=== PATIENT | female | born 1990 | race African-American/Black ===

== ENCOUNTER 2023-03-17 14:03 | Outpatient (AMB) | payer OTHER, SELFPAY ==
--- NOTE | 2023-03-17 14:08 | A.OFFVIS_ITS ---
Intake Vital Signs 03/17/23 14:10 Height 5 ft 6 in Weight 242 lb 8.136 oz BMI 39.1 BP 125/59 L Blood Pressure Location Lt brachial Position Sitting Pulse 69 Intake Visit Reasons: blood in stool, blood in emesis Intake Note: Makayla presents in the office as a new patient for blood in her stool. CC: She was having blood in her stools - she gets bad stomach pains. Everything she eats she has to have a BM afterwards. Loose stools right after anything that she eats. Pains are on the left side of her abdomen. [employer] Required: No Allergies Seasonal Allergies Allergy (Mild, Verified 03/17/23 14:11) Unknown HPI HPI Comments History of Present Illness Details 32 y.o F with no signficant PMH who is h ere for an episode of blood in stool. Pt reports having an episode of abd pain, N,V with soft frequent stools with blood in it. Lasted 3-4 days. Does not report any preceding hx of eating outside. No sick contacts. No prior similar hx however does have frequent soft stools with abd cramping at baseline x past few years. Abd cramping not related to defecation, food intake or menstrual cycle. No intentional weight loss. Pat aunt: stomach ca Mother: crohns disease PFSH Family History (Updated 03/17/23 @ 14:12 by VALERIA Deng) Paternal Aunt Stomach cancer Other Colon cancer Social History (Updated 03/17/23 @ 14:12 by VALERIA eDng) Household Members: Children Alcohol intake: current Alcohol intake frequency: holidays/special occasions only Patient Tobacco Use Status: Never used Tobacco Substance Use Type: Marijuana Review of Systems Const All systems reviewed & are unremarkable except as noted in HPI and below Physical Exam Vital Signs: Last Vital Signs Pulse 69 03/17/23 14:10 BP 125/59 L 03/17/23 14:10 BMI result Body Mass Index 39.1 Assessment & Plan Assessment & Plan (1) Blood in stool: Code(s): K92.1 - Melena (2) Change in bowel habit: Code(s): R19.4 - Change in bowel habit Plan Most recent self limiting episode with N/V and loose stools with blood suspicious for infectious gastroenteritis based on clinical history. However given background of indolent sx for years, and fam hx - IBD also on DDx. Other differentials include celiac, malabsorption, hyperthyroidism, IBS. Labs ordered as below. Endoscopic eval contingent on results. Follow up in 4 weeks Orders: Orders Transglutaminase IgA 03/17/23 K92.1 - Melena, R19.4 - Change in bowel habit TSH reflex Free T4 03/17/23 K92.1 - Melena, R19.4 - Change in bowel habit Complete Blood Count no Diff 03/17/23 K92.1 - Melena, R19.4 - Change in bowel habit Ferritin 03/17/23 K92.1 - Melena, R19.4 - Change in bowel habit Calprotectin, Fecal 03/17/23 K92.1 - Melena, R19.4 - Change in bowel habit Immunoglobulin A 03/17/23 K92.1 - Melena, R19.4 - Change in bowel habit Coding Level of Care Code New Pt Level 4 (07486) Diagnoses Blood in stool K92.1 Change in bowel habit R19.4
[2023-03-17 14:10] VITALS: BP 125/59; PULSE 69; BMI 39.1
== END 2023-03-17 15:14 | disposition home or self-care (01) ==
PROVIDERS: PCP Pediatrics; Visit Provider Internal Medicine
DX: K92.1 Melena (principal); R19.4 Change in bowel habit
CPT/HCPCS: 99204

== ENCOUNTER 2023-03-17 14:03 | Outpatient (REF) | payer OTHER, SELFPAY ==
[2023-03-17 15:38] LABS: Hematocrit 38.6 % (37.0-47.0); Hemoglobin 12.6 g/dl (12.0-16.0); Mean Corpuscular HGB Conc 32.6 g/dl (31.0-35.0); Mean Corpuscular Hemoglobin 24.2 pg (27.0-33.0); Mean Corpuscular Volume 74.2 fL (80.0-98.0); Mean Platelet Volume 11.1 fL (9.4-12.3); Platelet Count 352 X10*3/uL (160-400); Red Cell Distribution Width 14.7 % (11.0-16.0); White Blood Count 8.9 X10*3/uL (4.8-10.8)
[2023-03-17 17:12] LABS: Ferritin 19 ng/mL (10-122)
[2023-03-19 17:58] LABS: Transglutaminase IgA <1.0 U/mL
[2023-03-22 13:44] LABS: Immunoglobulin A 208 mg/dL (47-310)
== END 2023-03-17 14:04 | disposition home or self-care (01) ==
LOC: HO.LAB 14:03
PROVIDERS: PCP Pediatrics; Visit Provider Internal Medicine
DX: K92.1 Melena (principal); R19.4 Change in bowel habit
CPT/HCPCS: 36415; 82728; 82784; 84443; 85027; 86364; 99202

== ENCOUNTER 2023-03-19 12:22 | Outpatient (REF) | payer OTHER, SELFPAY ==
[2023-03-25 19:34] LABS: Calprotectin, Fecal 60 mcg/g
== END 2023-03-19 12:23 | disposition home or self-care (01) ==
LOC: HO.LNP 12:22
PROVIDERS: Visit Provider Internal Medicine
DX: R19.4 Change in bowel habit (principal); K92.1 Melena
CPT/HCPCS: 83993